=== PATIENT | male | born 1945 | race American Indian/Alaskan Native ===

== ENCOUNTER 2019-07-21 01:45 | Emergency (ER) | payer MEDICARE, BC ==
--- OUTSIDE RECORDS SUMMARY | 2019-07-21 01:59 | XMS REPORT | Summary of Care ---
:1945 Author Organization [facility] Address [address] [address] Care Team Providers Name Role Phone Pablo Rai Primary Care Provider Reason for Visit Reason Comments Hypertension f/u BP Edema continues with edema no change per patient and not taking medications Knee Pain denies any pain, MRI done Encounter Details Date Type Department Care Team Description 06/26/2019 Office Visit [place] [facility] Pablo Rai MD Hypertension, unspecified type (Primary Dx); Medicine [address] Paroxysmal atrial fibrillation (HCC); [address] [place] [address] PMR (polymyalgia rheumatica) (HCC); [place], [place] [id number] Hydroureteronephrosis; [phone] Renal insufficiency, mild; ASHD (arteriosclerotic heart disease) Allergies No Known Allergiesdocumented as of this encounter (statuses as of 07/06/2019) Medications Medication Sig Dispensed Refills Start Date End Date Status ASPIRIN 81 PO Take 1 Tab by 0 Active mouth. Multiple Vitamin Take 2 Tabs by 0 Active (MULTI-DAY) Oral Tab mouth DAILY. Potassium 99 MG Oral Take 2 Tabs by 0 Active Tab mouth DAILY. Magnesium 250 MG Oral Take 1 Tab by 0 Active Tab mouth DAILY. Ascorbic Acid (VITAMIN Take 2 Caps by 0 Active C) 500 MG Oral Cap mouth DAILY. Zn-Pyg Rqcy-Dxbcxk-Oyj Take by mouth. 0 Active Palmet (SAW PALMETTO COMPLEX PO) propafenone (RYTHMOL) Take 225 mg by 0 Active 225 MG Oral Tab mouth EVERY EIGHT HOURS NEEDED. Ca Take by mouth 0 Active Phosphate-Cholecalcifer DAILY. ol (CALCIUM 500 + D3) 250-500 MG-UNIT Oral Chew Tab predniSONE (DELTASONE) Take 20 mg by 0 Active 20 MG Oral Tab mouth DAILY. Tamsulosin HCl (FLOMAX) Take 0.4 mg by 0 Active 0.4 MG Oral Cap mouth DAILY. atorvastatin (LIPITOR) Take 1 Tab by 90 Tab 3 02/27/2019 Active 20 MG Oral mouth DAILY. TabIndications: Other hyperlipidemia, ASHD (arteriosclerotic heart disease) furosemide (LASIX) 20 Take 1 Tab by 30 Tab 5 04/24/2019 Active MG Oral Tab mouth DAILY. SARILUMAB SC Inject beneath 0 Active the skin. lisinopril (PRINIVIL, Take 1 Tab by 90 Tab 3 05/24/2019 Active ZESTRIL) 20 MG Oral Tab mouth DAILY. documented as of this encounter (statuses as of 07/06/2019) Active Problems Problem Noted Date History of atrial fibrillation 04/24/2019 Microscopic hematuria 02/13/2019 Paroxysmal atrial fibrillation 09/12/2018 Other hyperlipidemia 09/12/2018 Mitral regurgitation 09/12/2018 Gout 09/12/2018 ASHD (arteriosclerotic heart disease) 09/12/2018 Follicular neoplasm of thyroid 09/08/2018 PMR (polymyalgia rheumatica) HTN (hypertension) documented as of this encounter (statuses as of 07/06/2019) Immunizations Name Administration Dates Next Due Influenza Vaccine 65 Yrs + 02/24/2019 Pneumococcal Conjugate(13 Valent) 05/23/2019 documented as of this encounter Social History Tobacco Use Types Packs/Day Years Used Date Former Smoker Quit: 1976 Smokeless Tobacco: Never Used Alcohol Use Drinks/Week oz/Week Comments Yes wine daily, 1 glass Sex Assigned at Date Recorded Not on file Job Start Date Occupation Industry Not on file Not on file Not on file Travel History Travel Start Travel End No recent travel history available. documented as of this encounter Last Filed Vital Signs Vital Sign Reading Time Taken Comments Blood Pressure 138/68 06/26/2019 3:07 PM EST Pulse 68 06/26/2019 3:07 PM EST Temperature - - Respiratory Rate - - Oxygen Saturation - - Inhaled Oxygen Concentration - - Weight 68.5 kg (151 lb) 06/26/2019 3:07 PM EST Height - - Body Mass Index 25.13 02/27/2019 4:04 PM EDT documented in this encounter Patient Instructions Patient InstructionsPablo Rai MD - 06/26/2019 2:50 PM ESTContinue same medicines Get checked by urologist. Call if you need me to advocate for a sooner appointment. follow up in 2 months documented in this encounter Progress Notes Pablo Rai MD - 06/26/2019 2:50 PM EST PATIENT: Abdirizak Hutchison : 1945 DATE OF SERVICE: 06/26/2019 CHIEF COMPLAINT: Chief Complaint Patient presents with Hypertension f/u BP Edema continues with edema no change per patient and not taking medications Knee Pain denies any pain, MRI done Subjective HISTORY OF PRESENT ILLNESS: Abdirizak Hutchison is a 73-y.o. male. HPI He returns in follow-up of several issues. Still has some edema in his legs, not consistently taking diuretic. Urged him to take it. Blood pressure satisfactory. Had left leg swelling and had MRI ordered by his cloud consultant. There was no Garg's cyst, and venous Doppler done by me showed no DVT. He has not yet seen urologist as I recommended, to assess bilateral hydronephrosis and hydroureter seen on prior ultrasound. Made referral to Dr. Helder Gallardo in [place] per his request. Past Medical History: Diagnosis Date ASHD (arteriosclerotic heart disease) 09/12/2018 Gout 09/12/2018 HTN (hypertension) Mitral regurgitation 09/12/2018 Other hyperlipidemia 09/12/2018 Paroxysmal atrial fibrillation (HCC) 09/12/2018 PMR (polymyalgia rheumatica) (HCC) Family History Problem Relation Age of Onset Heart Mother Afib Kidney Disease Father Heart Brother 64 CABG Current Outpatient Medications Medication Sig Ascorbic Acid (VITAMIN C) 500 MG Oral Cap Take 2 Caps by mouth DAILY. ASPIRIN 81 PO Take 1 Tab by mouth. atorvastatin (LIPITOR) 20 MG Oral Tab Take 1 Tab by mouth DAILY. Ca Phosphate-Cholecalciferol (CALCIUM 500 + D3) 250-500 MG-UNIT Oral Chew Tab Take by mouth DAILY. furosemide (LASIX) 20 MG Oral Tab Take 1 Tab by mouth DAILY. lisinopril (PRINIVIL, ZESTRIL) 20 MG Oral Tab Take 1 Tab by mouth DAILY. Magnesium 250 MG Oral Tab Take 1 Tab by mouth DAILY. Multiple Vitamin (MULTI-DAY) Oral Tab Take 2 Tabs by mouth DAILY. Potassium 99 MG Oral Tab Take 2 Tabs by mouth DAILY. predniSONE (DELTASONE) 20 MG Oral Tab Take 20 mg by mouth DAILY. propafenone (RYTHMOL) 225 MG Oral Tab Take 225 mg by mouth EVERY EIGHT HOURS NEEDED. SARILUMAB SC Inject beneath the skin. Tamsulosin HCl (FLOMAX) 0.4 MG Oral Cap Take 0.4 mg by mouth DAILY. Zn-Pyg Oqxd-Dzafpu-Cfq Palmet (SAW PALMETTO COMPLEX PO) Take by mouth. No current facility-administered medications for this visit. No Known Allergies Social History Socioeconomic History Marital status: Spouse name: Not on file Number of children: Not on file Years of education: Not on file Highest education level: Not on file Occupational History Not on file Social Needs Financial resource strain: Not on file Food insecurity Worry: Not on file Inability: Not on file Transportation needs Medical: Not on file Non-medical: Not on file Tobacco Use Smoking status: Former Smoker Last attempt to quit: 1977 Years since quittin.0 Smokeless tobacco: Never Used Substance and Sexual Activity Alcohol use: Yes Comment: wine daily, 1 glass Drug use: Not Currently Types: Marijuana Sexual activity: Yes Partners: Female Lifestyle Physical activity Days per week: Not on file Minutes per session: Not on file Stress: Not on file Relationships Social connections Talks on phone: Not on file Gets together: Not on file Attends mormonism service: Not on file Active member of club or organization: Not on file Attends meetings of clubs or organizations: Not on file Relationship status: Not on file Intimate partner violence Fear of current or ex partner: Not on file Emotionally abused: Not on file Physically abused: Not on file Forced sexual activity: Not on file Other Topics Concern Not on file Social History Narrative Not on file REVIEW OF SYSTEMS: Review of Systems Constitutional: Negative for malaise/fatigue and weight loss. HENT: Negative for congestion. Eyes: Negative for blurred vision and double vision. Respiratory: Negative for shortness of breath. Saw Dr Delgado, sat tutor, who did PFT's, were essentially normal. No new meds rx'ed. Cardiovascular: Negative for chest pain. Gastrointestinal: Negative for abdominal pain. Genitourinary: Negative for dysuria. Musculoskeletal: Positive for back pain and joint pain. No symptoms of PMR. In a blinded study of a biologic (serelinab). Down to 9 mg prednisone. Collided with a dog with right knee, hurts a bit Skin: Negative for rash. Neurological: Negative for seizures and loss of consciousness. Endo/Heme/Allergies: Negative for environmental allergies and polydipsia. Psychiatric/Behavioral: Negative for depression. Objective PHYSICAL EXAM: VITALS: BP 138/68 (BP Location: Left arm, Patient Position: Sitting) | Pulse 68 | Wt 151 lb (68.5kg) | BMI 25.13 kg/m Body mass index is 25.13 kg/m . Physical Exam Alert, oriented, in no acute distress. Vitals as above. HEENT: Normocephalic, atraumatic. DEONTE, EOMI. Mouth and ears unremarkable. Neck: No palpable lymphadenopathy in the submandibular, submental, anterior cervical, posterior cervical, or occipital chains, nor in the supraclavicular spaces. No JVD, thyromegaly. LUNGS: clear. HEART: Regular rate and rhythm. ABDOMEN: positive bowel sounds, soft, nontender, no hepatosplenomegaly, masses or bruits. EXTREMITIES: no cyanosis, clubbing, or edema. ASSESSMENT / IMPRESSION: ICD-9-CM ICD-10-CM 1. Hypertension, unspecified typecontrolled 401.9 I10 2. Paroxysmal atrial fibrillation (HCC)none evident today 427.31 I48.0 3. PMR (polymyalgia rheumatica) (HCC)stable on low-dose prednisone 725 M35.3 4. Hydroureteronephrosisagain recommended urology evaluation 591 N13.30 5. Renal insufficiency, mildtold him this could be due to the hydroureteronephrosis and could get worse if this was not addressed 593.9 N28.9 6. ASHD (arteriosclerotic heart disease)controlled 414.00 I25.10 Patient Instructions Continue same medicines Get checked by urologist. Call if you need me to advocate for a sooner appointment. follow up in 2 months author: Pablo Rai MD 06/26/2019 15:53 documented in this encounter Plan of Treatment Date Type Specialty Care Team Description 08/28/2019 Office Visit Internal Medicine Pablo Rai MD [address] [place] [address] [phone] 09/11/2019 Office Visit Cardiology Donn Chaney MD [address] [place] [address] [phone] Health Maintenance Due Date Last Done Comments MEDICARE ANNUAL WELLNESS VISIT 1945 HIV SCREENING 09/07/1959 HEPATITIS C SCREENING 1984 Colonoscopy 1994 ZOSTER IMMUNIZATION SERIES (1 1994 of 2) AAA SCREENING/SURVEILLANCE 2009 DEPRESSION SCREENING 02/14/2020 02/13/2019 FALL RISK ASSESSMENT 02/14/2020 02/13/2019, 02/13/2019 LIPID DISORDER SCREENING 02/28/2020 02/27/2019, 01/02/2019 PNEUMOCOCCAL 65+YRS (2 of 2 - 05/23/2020 05/23/2019 PPSV23) INFLUENZA VACCINE Completed 02/24/2019 HEPATITIS A IMMUNIZATION Aged Out No longer eligible based SERIES on patient's age to complete this topic HPV IMMUNIZATION SERIES Aged Out No longer eligible based on patient's age to complete this topic MENINGOCOCCAL VACCINE IMM Aged Out No longer eligible based on patient's age to complete this topic documented as of this encounter Goals Goal Patient Goal Associated Recent Patient-Stated? Author Type Problems Progress Blood Pressure Blood Pressure 138/68 Manisha Rai, < 140/90 (06/26/2019 MD Pablo 3:07 PM EST) Note: This is an individualized treatment (blood pressure) goal for Abdirizak Hutchison: Displayed above (on the left) is your goal for blood pressure control. Your most recent blood pressure is also shown above, on the right. You should try to achieve blood pressures that are lower than your goal listed above (on the left). Take all prescribed medications as directed Self-management Pablo Hatfield MD Note: This is an individualized self-management goal for Abdirizak Hutchison: Please take all prescribed medications as directed. 1. Do not skip doses. If you cannot afford your medications, talk with your doctor. 2. Use a pill reminder system such as a pill box if needed. Your pharmacist can help you with this. 3. Contact your Pharmacy 5 days before your medication runs out. If you cannot take your medications for any reasons, talk with your doctor. 4. Please bring all of your medication bottles and inhalers (or a list of all your medications/inhalers) with you to every visit. Potential barriers to meeting all of your care plan goals will continue to be addressed on an ongoing basis. documented as of this encounter Results Not on filedocumented in this encounter Visit Diagnoses Diagnosis Paroxysmal atrial fibrillation (HCC) Atrial fibrillation PMR (polymyalgia rheumatica) (HCC) Polymyalgia rheumatica Hydroureteronephrosis Hydronephrosis Hypertension, unspecified type Renal insufficiency, mild Unspecified disorder of kidney and ureter ASHD (arteriosclerotic heart disease) Coronary atherosclerosis of unspecified type of vessel, pilot point or graft documented in this encounter Insurance Payer Benefit Plan / Subscriber ID Effective Dates Phone Address Type Group MEDICARE MEDICARE PART xxxxxxxxxxx 2009-[facility] Medicare A & B t BCBS NATIONAL BC NATIONAL xxxxxxxxxxxx 2018-[facility] Blue nt Cross/Blue Shield ([place]) [place] [address] documented as of this encounter"
--- OUTSIDE RECORDS SUMMARY | 2019-07-21 01:59 | XMS REPORT | Summary of Care ---
:1945 Author Organization [facility] Address [address] [address] Care Team Providers Name Role Phone Pablo Rai Primary Care Provider Reason for Visit Reason Comments Edema left leg seems to be still swollen; denies any pain at this time Hypertension f/u BP: 146/32 Injection would like pnemonia vaccine. Encounter Details Date Type Department Care Team Description 05/23/2019 Office Visit [place] [facility] Pablo Rai MD Renal insufficiency, mild (Primary Dx); Medicine [address] [facility] Hydroureteronephrosis; [address] [place] [address] Hypertension, unspecified type; [place] [address] PMR (polymyalgia rheumatica) (HCC); [phone] Paroxysmal atrial fibrillation ([facility]); Urinary frequency; Left leg swelling Allergies No Known Allergiesdocumented as of this encounter (statuses as of 05/23/2019) Medications Medication Sig Dispensed Refills Start Date [...] 500 MG Oral Cap mouth DAILY. Zn-Pyg Nygs-Dywtci-Auo Take by mouth. 0 Active Palmet (SAW [...] 04/24/2019 Active MG Oral Tab mouth DAILY. lisinopril (PRINIVIL, Take 1 Tab by 30 Tab 0 04/24/2019 Active ZESTRIL) 20 MG Oral Tab mouth DAILY. SARILUMAB SC Inject beneath 0 Active the skin. documented as of this encounter (statuses as of 05/23/2019) Active Problems Problem Noted Date History of atrial fibrillation 04/24/2019 Microscopic hematuria 02/13/2019 Paroxysmal atrial fibrillation 09/12/2018 Other hyperlipidemia 09/12/2018 Mitral regurgitation 09/12/2018 Gout 09/12/2018 ASHD (arteriosclerotic heart disease) 09/12/2018 Follicular neoplasm of thyroid 09/08/2018 PMR (polymyalgia rheumatica) HTN (hypertension) documented as of this encounter (statuses as of 05/23/2019) Immunizations Name Administration Dates Next Due Influenza [...] Sign Reading Time Taken Comments Blood Pressure 146/62 05/23/2019 11:34 AM EST Pulse 68 05/23/2019 11:34 AM EST Temperature - - Respiratory Rate - - Oxygen Saturation - - Inhaled Oxygen Concentration - - Weight 67.6 kg (149 lb) 05/23/2019 11:34 AM EST Height - - Body Mass Index 24.79 02/27/2019 4:04 PM EDT documented in this encounter Patient Instructions Patient InstructionsPablo Rai MD - 05/23/2019 11:20 AM ESTContinue same medicines for now Lab today, as listed. I'll notify you of the results with a letter. Let me know what Dr Avila says about your blood test (if there was a recent creatinine done) follow up in 1 month 12: 37 PM EST documented in this encounter Progress Notes Pablo Rai MD - 05/23/2019 11:20 AM EST PATIENT: Abdirizak Hutchison : 1945 DATE OF SERVICE: 05/23/2019 CHIEF COMPLAINT: Chief Complaint Patient presents with Edema left leg seems to be still swollen; denies any pain at this time Hypertension f/u BP: 146/32 Injection would like pnemonia vaccine. Subjective HISTORY OF PRESENT ILLNESS: Abdirizak Hutchison is a 73-y.o. male. HPI In a study for treatment of PMR with sarilumab, for trying to spare the use of steroids. Got first administration of sarilumab (or placebo) a week and a half ago. Not having myalgia but still feels weak. Still on prednisone 10 mg a day for PMR Wt hard to drop. Has more weight carrying around his left leg, which he measures as 1/2 inch largerthan right at widest part of the calf. Prior venous Doppler of the left leg done last month was negative for DVT. BP in 120's-140's syst. On 20 mg lisinopril . No perceived side effects with this Using diuretic (furosemide) as needed. Note on recent labs done by me that creatinine higher than before (was 1.0 in November 2018, and 1.5 earlier this month). He showed me lab work done in [facility] 1 month ago where creatinine was 1.22. Told him I will be following this closely. He emailed his dye colorist formulator in [place], Dr. Avila to find out if other creatinine levels were done more recently. We reviewed outside records where he had a renal and bladder ultrasound last month showing hydroureter and hydronephrosis. The summary of that report is transcribed below: BILATERAL MILD TO MODERATE HYDROURETERONEPHROSIS WITH DILATATION OF THE RIGHT AND LEFT URETERS TO THE LEVEL OF THE URETEROVESICAL JUNCTIONS. NO INTRAURETERAL STONE OR MASS IDENTIFIED. THIS URETERAL DILATATION IS LIKELY DUE TO THE ENLARGED PROSTATE. A SMALL RIGHT URETERAL JET WAS OBTAINED. A LEFT URETERAL JET COULD NOT BE OBTAINED AT THIS TIME. He was told by the urologist in [place] to report to the emergency room right away for Watson catheterization but he did not do this. He saw another urologist who prescribed tamsulosin, and when the initial dose was ineffective he had him double it, but that did not help so he went back to the initial dose. I told him that hydronephrosis could cause a worsening of kidney function. We will recheck urinalysis and comprehensive metabolic profile today. We talked about using local urologist. He would consider going to one in [place]. We decided we would see what today's test results were and then proceed from there. Past Medical History: Diagnosis Date ASHD (arteriosclerotic [...] mouth EVERY EIGHT HOURS NEEDED. SARILUMAB SC (or possibly placebo- he's in a study) Inject beneath the skin. Tamsulosin HCl (FLOMAX) 0.4 MG Oral Cap Take 0.4 mg by mouth DAILY. Zn-Pyg Kajr-Yqqxpl-Owi Palmet (SAW PALMETTO COMPLEX PO) Take by [...] Last attempt to quit: 1977 Years since quittin.9 Smokeless tobacco: Never Used Substance and Sexual Activity Alcohol use: Yes Comment: wine daily, 1 glass Drug use: Not Currently Types: Marijuana Sexual activity: Yes Partners: Female Lifestyle Physical activity Days per week: Not on file Minutes per session: Not on file Stress: Not on file Relationships Social connections Talks on phone: Not on file Gets together: Not on file Attends pentecostal service: Not on file Active member of [...] REVIEW OF SYSTEMS: Review of Systems Constitutional: Positive for malaise/fatigue. Negative for fever and weight loss. HENT: Negative for congestion. Eyes: Negative for blurred vision. Respiratory: Positive for shortness of breath ( More easily with exertion). Cardiovascular: Negative for chest pain. Gastrointestinal: Negative for abdominal pain. Genitourinary: Positive for frequency. Negative for dysuria, flank pain, hematuria and urgency. Musculoskeletal: Positive for joint pain and myalgias. Neurological: Negative for seizures and loss of consciousness. Endo/Heme/Allergies: Negative for polydipsia. Psychiatric/Behavioral: Negative. Objective PHYSICAL EXAM: VITALS: BP (!) 146/62 (BP Location: Left arm, Patient Position: Sitting) | Pulse 68 | Wt 149 lb (67.6 kg) | BMI 24.79 kg/m Body mass index is 24.79 kg/m. Physical Exam Alert, oriented, in no acute [...] masses or bruits. EXTREMITIES: no cyanosis, clubbing, but trace ankle edema. Left calf slightly bigger than right ASSESSMENT / IMPRESSION: ICD-9-CM ICD-10-CM 1. Renal insufficiency, mildetiology unclear. Possible causes could be the institution of lisinopril, or presence of hydroureteronephrosis. We will recheck lab work 593.9 N28.9 URINALYSIS (LAB) COMPREHENSIVE METABOLIC PANEL 2. Hydroureteronephrosis 591 N13.30 3. Hypertension, unspecified type suboptimally controlled, but if there is hydroureteronephrosis persisting this could raise blood pressure 401.9 I10 4. PMR (polymyalgia rheumatica) (HCC)continue tapering prednisone and participating in study of sarilumab 725 M35.3 5. Paroxysmal atrial fibrillation (HCC)no episodes in the last several weeks 427.31 I48.0 6. Urinary frequencycould be to this hydroureteronephrosis 788.41 R35.0 7. Left leg swellingunclear cause. 729.81 M79.89 Patient Instructions Continue same medicines for now Lab today, as listed. I'll notify you of the results with a letter. Let me know what Dr Avila says about your blood test (if there was a recent creatinine done) follow up in 1 month Author: Pablo Rai MD 05/23/2019 12:01 documented in this encounter Plan of Treatment Date Type Specialty Care Team Description 06/26/2019 Office Visit Internal Medicine Pablo Rai MD [address] [place] [address] [phone] 07/10/2019 Office Visit Internal Medicine Pablo Rai MD [address] [place] [address] [phone] 09/11/2019 Office Visit Cardiology Donn Chaney MD [address] [place] [address] [phone] Name Type Priority Associated Diagnoses Date/Time URINALYSIS (LAB) Lab Routine Renal insufficiency, 05/23/2019 12:45 PM mild EST COMPREHENSIVE METABOLIC Lab Routine Renal insufficiency, 05/23/2019 12:44 PM PANEL mild EST Health Maintenance Due Date Last Done Comments MEDICARE ANNUAL WELLNESS VISIT 1945 HIV SCREENING 09/07/1959 HEPATITIS C SCREENING 1984 Colonoscopy 1994 ZOSTER IMMUNIZATION SERIES (1 1994 of 2) AAA SCREENING/SURVEILLANCE 2009 PNEUMOCOCCAL 65+YRS (1 of 2 - 2009 PCV13) DEPRESSION SCREENING 02/14/2020 02/13/2019 FALL RISK ASSESSMENT 02/14/2020 02/13/2019, 02/13/2019 LIPID DISORDER SCREENING 02/28/2020 02/27/2019, 01/02/2019 INFLUENZA VACCINE Completed 02/24/2019 HEPATITIS A IMMUNIZATION [...] Type Problems Progress Blood Pressure Blood Pressure 146/62 No Fredi, < 140/90 (05/23/2019 MD Pablo 11:34 AM EST) Note: This is an individualized treatment [...] is an individualized self-management goal for Abdirizak Villaltal: Please take all prescribed medications as directed. [...] filedocumented in this encounter Visit Diagnoses Diagnosis Renal insufficiency, mild Unspecified disorder of kidney and ureter Hydroureteronephrosis Hydronephrosis Hypertension, unspecified type PMR (polymyalgia rheumatica) (HCC) Polymyalgia rheumatica Paroxysmal atrial fibrillation (HCC) Atrial fibrillation Urinary frequency Left leg swelling documented in this encounter Insurance Payer Benefit Plan / Subscriber ID Effective Dates Phone Address Type Group MEDICARE MEDICARE PART xxxxxxxxxxx 2009-[employer] Medicare A & B t BC NATIONAL [facility] NATIONAL xxxxxxxxxxxx 2018-[facility] [[email or web address]] Blue Cross/Blue Shield ([place]) [place] [address] documented as of this encounter"
--- NOTE | 2019-07-21 03:02 | ED ---
GI/ HPI - HPI Summary HPI Summary: The patient is a 73 y/o male presenting to [facility] accompanied by with a chief complaint of indwelling catheter issue this morning. He reports that he had BPH surgery, and the catheter was placed 07/19/2019. He was advised that the catheter would drain with hematuria; however, the urine is not draining. He endorses lower abdominal pressure as well. Patient was supposed to be on Cipro for six days but was concerned for issues with atrial fibrillation. PMHx: HTN. Former smoker, daily EtOH, no substance use. Medications reviewed. Allergies noted. - History of Current Complaint Chief Complaint: EDUrogenitalProblems Time Seen by Provider: 07/21/19 02:15 Stated Complaint: CATHER ISSUE PER PT Hx Obtained From: Patient Onset/Duration: Started Hours Ago, Still Present Timing: Constant Severity: Mild Current Severity: Moderate Pain Intensity: 0 Location of Pain: Other - lower Pain Characteristics: Pressure Associated Signs and Symptoms: Positive: Abdominal Pain, Other: - urinary retention via catheter - Allergy/Home Medications Allergies/Adverse Reactions: Allergies Allergy/AdvReac Type Severity Reaction Status Date / Time No Known Allergies Allergy Verified 07/21/19 01:51 PMH/Surg Hx/FS Hx/Imm Hx Endocrine/Hematology History: Denies: Hx Diabetes, Hx Thyroid Disease, Hx Anemia Cardiovascular History: Reports: Hx Atrial Fibrillation, Hx Hypertension Denies: Hx Pacemaker/ICD GI History: Denies: Hx Jaundice History: Denies: Hx Dialysis, Hx Renal Disease Sensory History: Denies: Hx Hearing Aid Psychiatric History: Denies: Hx Panic Disorder - Surgical History Surgical History: Yes Surgery Procedure, Year, and Place: tonsillectomy Infectious Disease History: No Infectious Disease History: Denies: Traveled Outside the [place] in Last 30 Days - Family History Known Family History: Negative: Diabetes, Renal Disease - Social History Alcohol Use: Daily Hx Substance Use: No Substance Use Type: Reports: None Hx Tobacco Use: Yes Smoking Status (MU): Former Smoker Review of Systems Positive: Abdominal Pain - lower, pressure Positive: other - urinary retention with catheter All Other Systems Reviewed And Are Negative: Yes Physical Exam - Summary Physical Exam Summary: Appearance: Well-appearing, Well-nourished, lying in bed comfortable Skin: Warm, dry, no obvious rash Eyes: sclera anicteric, no conjunctival pallor HENT: mucous membranes moist Neck: deferred Respiratory: No signs of respiratory distress Cardiovascular: Appears well perfused, pulses are nml Abdomen: deferred Musculoskeletal: Moving all 4 extremities without obvious discomfort Neurological: Awake and alert, mentation is normal, speech is fluent and appropriate Psychiatric: affect is normal, does not appear anxious or depressed Triage Information Reviewed: Yes Vital Signs On Initial Exam: Initial Vitals Temp Pulse Resp BP Pulse Ox 99.1 F 78 20 137/78 99 07/21/19 01:47 07/21/19 01:47 07/21/19 01:47 07/21/19 01:47 07/21/19 01:47 Vital Signs Reviewed: Yes Procedures - Sedation Patient Received Moderate/Deep Sedation with Procedure: No Diagnostics - Vital Signs Vital Signs Temp Pulse Resp BP Pulse Ox 07/21/19 01:47 99.1 F 78 20 137/78 99 - Laboratory Lab Statement: Any lab studies that have been ordered have been reviewed, and results considered in the medical decision making process. Re-Evaluation - Re-Evaluation First Eval Re-Evaluation Time: 03:10 Change: Improved Comment: Aguilera working properly. We discussed plan for discharge. GIGU Course/Dx - Course Course Of Treatment: 73 y/o male presenting with aguilera catheter drainage issues , with placemen of catheter two days ago following BPH surgery. States lower abdominal pressure. Physical exam unremarkable. Nurse Lini irrigated catheter to improve urinary flow and abdominal pressure. Patient is safe for discharge. Patient understands and agrees with plan with rx for Keflex. - Diagnoses Provider Diagnoses: Aguilera catheter problem Discharge ED - Sign-Out/Discharge Documenting (check all that apply): Patient Departure - Patient will be discharged home. - Discharge Plan Condition: Good Disposition: HOME Patient Education Materials: Aguilera Catheter Placement and Care (ED) Referrals: Jc Deshpande MD [Primary Care Provider] - - Billing Disposition and Condition Condition: GOOD Disposition: Home - Attestation Statements Document Initiated by Stephanie: Yes Documenting Scribe: Ashlee Caban Provider For Whom Stephanie is Documenting (Include Credential): Dr. Skyler Beebe MD Scribe Attestation: Ashlee Mays scribed for Dr. Skyler Beebe MD on 07/21/19 at 0457. Scribe Documentation Reviewed: Yes Provider Attestation: The documentation as recorded by the Ashlee moyer accurately reflects the service I personally performed and the decisions made by me, Dr. Skyler Beebe MD Status of Vandanaibranjit Document: Viewed
[2019-07-21] MEDS ORDERED: Cephalexin CAP* 500 MG PO ONE (03:14)
[2019-07-21 03:56] VITALS: BP 147/72
== END 2019-07-21 03:35 | disposition home or self-care (01) ==
LOC: ED 01:45
DX: T83.098A Other mechanical complication of other urinary catheter, initial encounter (principal); I48.91 Unspecified atrial fibrillation; I10 Essential (primary) hypertension; Z87.891 Personal history of nicotine dependence
CPT/HCPCS: 99282; A9270-GY

== ENCOUNTER 2019-07-22 20:16 | Emergency (ER) | payer MEDICARE, BC ==
[2019-07-22 20:21] VITALS: BP 158/86
--- NOTE | 2019-07-22 20:47 | ED ---
GI/ HPI - HPI Summary HPI Summary: 73 year old male presents with catheter not working. He states he had a cystoscope on 07/19 and had catheter placed afterwards. He states the catheter wasn't draining and needed to be irrigated twice so far. States that he came in two nights ago and was on Cipro which was switched to Keflex which he has been taking for the past 24 hours. He's been taking 500mg 4 times a day. He states he has a issues with his prostate. Denies any history of kidney stones. He states he takes a daily aspirin. He states that noticed more blood in his urine earlier today and then started passing some clots and then he started passing urine. He denies any pain. - History of Current Complaint Chief Complaint: EDUrogenitalProblems Time Seen by Provider: 07/22/19 20:31 Stated Complaint: PROBLEMS WITH CATHETER PER PT Pain Intensity: 3 - Allergy/Home Medications Allergies/Adverse Reactions: Allergies Allergy/AdvReac Type Severity Reaction Status Date / Time No Known Allergies Allergy Verified 07/23/19 04:05 PMH/Surg Hx/FS Hx/Imm Hx Endocrine/Hematology History: Denies: Hx Diabetes, Hx Thyroid Disease, Hx Anemia Cardiovascular History: Reports: Hx Atrial Fibrillation, Hx Hypertension Denies: Hx Pacemaker/ICD GI History: Denies: Hx Jaundice History: Denies: Hx Dialysis, Hx Renal Disease Sensory History: Denies: Hx Hearing Aid Psychiatric History: Denies: Hx Panic Disorder - Surgical History Surgery Procedure, Year, and Place: tonsillectomy - Immunization History Date of Influenza Vaccine: 02/2019 Infectious Disease History: No Infectious Disease History: Denies: Traveled Outside the [place] in Last 30 Days - Family History Known Family History: Negative: Diabetes, Renal Disease - Social History Alcohol Use: Daily Hx Substance Use: No Substance Use Type: Reports: None Hx Tobacco Use: Yes Smoking Status (MU): Former Smoker Review of Systems Negative: Fever Negative: Chest Pain Negative: Shortness Of Breath Positive: other - catheter not draining All Other Systems Reviewed And Are Negative: Yes Physical Exam Triage Information Reviewed: Yes Vital Signs On Initial Exam: Initial Vitals Temp Pulse Resp BP Pulse Ox 98.7 F 90 16 158/86 100 07/22/19 20:18 07/22/19 20:18 07/22/19 20:18 07/22/19 20:18 07/22/19 20:18 Vital Signs Reviewed: Yes Appearance: Positive: Well-Appearing Skin: Positive: Warm, Dry Head/Face: Positive: Normal Head/Face Inspection Eyes: Positive: Normal, Conjunctiva Clear ENT: Positive: Pharynx normal Respiratory/Lung Sounds: Positive: Clear to Auscultation, Breath Sounds Present Cardiovascular: Positive: Normal, RRR Abdomen Description: Positive: Soft, Other: - mild suprapubic tenderness Bowel Sounds: Positive: Present Musculoskeletal: Positive: Normal Neurological: Positive: Normal Psychiatric: Positive: Normal Procedures - Sedation Patient Received Moderate/Deep Sedation with Procedure: No Diagnostics - Vital Signs Vital Signs Temp Pulse Resp BP Pulse Ox 07/22/19 20:18 98.7 F 90 16 158/86 100 - Laboratory Lab Statement: Any lab studies that have been ordered have been reviewed, and results considered in the medical decision making process. Re-Evaluation - Re-Evaluation First Eval Re-Evaluation Time: 21:03 Comment: urine is less blood tinged and no clots coming out of catether after flushed GIGU Course/Dx - Course Course Of Treatment: 73 year old male presents with catheter not working. He states he had a cystoscope on 07/19 and had catheter placed afterwards. He states the catheter wasn't draining and needed to be irrigated twice so far. States that he came in two nights ago and was on Cipro which was switched to Keflex which he has been taking for the past 24 hours. He's been taking 500mg 4 times a day. He states he has a issues with his prostate. Denies any history of kidney stones. He states he takes a daily aspirin. He states that noticed more blood in his urine earlier today and then started passing some clots and then he started passing urine. He denies any pain. On exam mild suprapubic tenderness. Bladder scan shows urine 650. catheter was flushed by Dariela and started to flow again. urine started bloody and then started to clear up. told to follow up with urology. patient understand and agrees with plan. - Diagnoses Differential Diagnoses - Male: Urinary Tract Infection, Other - catheter problem , bladder stone Provider Diagnoses: Urinary catheter complication Discharge ED - Sign-Out/Discharge Documenting (check all that apply): Patient Departure - Discharge Plan Condition: Good Disposition: HOME Patient Education Materials: [facility] Catheter Placement and Care (ED) Referrals: Jc Deshpande MD [Medical Doctor] - Additional Instructions: drink plenty of fluids follow up with urology Return to ED if develop any new or worsening symptoms - Billing Disposition and Condition Condition: GOOD Disposition: Home - Attestation Statements Provider Attestation: I was available for consultation for this patient. I did not evaluate the patient or participate in any medical decision making or disposition decisions unless I am specifically named in the chart as having consulted on the patient. If I have consulted on the patient, please see my own ED note on the patient encounter. Mariel Spear MD
== END 2019-07-22 21:15 | disposition home or self-care (01) ==
LOC: ED 20:16
DX: T83.098A Other mechanical complication of other urinary catheter, initial encounter (principal); I48.91 Unspecified atrial fibrillation; I10 Essential (primary) hypertension; Z87.891 Personal history of nicotine dependence
CPT/HCPCS: 99282

== ENCOUNTER 2019-07-23 04:01 | Emergency (ER) | payer MEDICARE, BC ==
[2019-07-23 05:20] LABS: Urine Appearance Cloudy; Urine Bilirubin Negative (Negative); Urine Blood 3+ (Negative); Urine Color Yellow; Urine Glucose Negative (Negative); Urine Ketones Negative (Negative); Urine Nitrite Negative (Negative); Urine Protein Negative (Negative); Urine Urobilinogen Negative (Negative)
--- NOTE | 2019-07-23 05:24 | ED ---
GI/ HPI - HPI Summary HPI Summary: 73 year old male presents to the ED with a chief complaint of aguilera catheter blockage. Patient had prostate surgery 3 days ago. In [facility]. He had a Aguilera catheter placed after the procedure. Was placed on Cipro prophylactically. He states he had hematuria and then catheter blockage that night was seen in [place]. Was doing well yesterday but presented overnight with catheter blockage. It was irrigated and drained. Patient had read about Cipro in combination with his prednisone for PMR and requested Cipro to be stopped. Was started on Keflex. Has had 6 doses total. Patient was taking a shower yesterday morning when he noticed blood in his Aguilera catheter. Later in the day, he noticed that the catheter failed to drain. He reports pain in his suprapubic area, as well as burning dysuria. He denies fever. Patient also admits being unsure if he has drank enough fluids. - History of Current Complaint Chief Complaint: EDUrogenitalProblems Time Seen by Provider: 07/23/19 04:34 Stated Complaint: CATHETER NOT DRAINING PER PT Hx Obtained From: Patient Onset/Duration: Started Hours Ago, Still Present Timing: Constant Pain Intensity: 0 Location of Pain: Suprapubic Additional Locations for Males: Penis Pain Characteristics: Burning Associated Signs and Symptoms: Positive: Hematuria, Dysuria, Abdominal Pain - Allergy/Home Medications Allergies/Adverse Reactions: Allergies Allergy/AdvReac Type Severity Reaction Status Date / Time No Known Allergies Allergy Verified 07/23/19 04:05 PMH/Surg Hx/FS Hx/Imm Hx Endocrine/Hematology History: Denies: Hx Diabetes, Hx Thyroid Disease, Hx Anemia Cardiovascular History: Reports: Hx Atrial Fibrillation, Hx Hypertension Denies: Hx Pacemaker/ICD GI History: Denies: Hx Jaundice History: Denies: Hx Dialysis, Hx Renal Disease Sensory History: Denies: Hx Hearing Aid Psychiatric History: Denies: Hx Panic Disorder - Surgical History Surgery Procedure, Year, and Place: tonsillectomy - Immunization History Date of Influenza Vaccine: 02/2019 Infectious Disease History: No Infectious Disease History: Denies: Traveled Outside the [place] in Last 30 Days - Family History Known Family History: Negative: Diabetes, Renal Disease - Social History Alcohol Use: Daily Hx Substance Use: No Substance Use Type: Reports: None Hx Tobacco Use: Yes Smoking Status (MU): Former Smoker Review of Systems - StartBull Summary Review of Systems Summary: Home Medications Medication Instructions Recorded Confirmed Type Aspirin [Aspir-Low] 81 mg PO DAILY 08/30/18 08/30/18 History Magnesium [Magnesium Elemental] 30 mg PO DAILY 08/30/18 08/30/18 History Multivitamin [Multivitamins] 1 cap PO DAILY 08/30/18 08/30/18 History Potassium 99 mg PO DAILY 08/30/18 08/30/18 History Negative: Fever Positive: Abdominal Pain Positive: burning, dysuria, hematuria, pain All Other Systems Reviewed And Are Negative: Yes Physical Exam - Summary Physical Exam Summary: General: Well-developed, Well-nourished male. No acute distress. HEENT: Normocephalic, Atraumatic. Eyes: Conjuctiva normal, PERRL. Ears: TMs within normal limits. Nares: (-) discharge, (-) erythema. Oropharynx: Clear, mucous membranes moist, (-) exudates. Neck: Soft, FROM, (-) lymphadenopathy, (-) thyromegaly, (-) JVD. Cardiovascular: Normal sinus rhythm, (-) murmur. Lungs: Clear to auscultation bilaterally (-) wheezes, (-) rales, (-) rhonchi. Abdomen: Soft, slightly distended abdomen. No significant tenderness. (-) organomegaly, normal bowel sounds. Mild suprapubic tenderness and fullness. Back: (-) CVA tenderness Extremities: No edema. Skin: Warm, dry, (-) rash. Neuro: Alert and oriented x3, no focal deficits. Psychiatric: Mood normal, affect normal. Triage Information Reviewed: Yes Vital Signs On Initial Exam: Initial Vitals Temp Pulse Resp BP Pulse Ox 99.2 F 74 18 146/67 98 07/23/19 04:01 07/23/19 04:01 07/23/19 04:01 07/23/19 04:01 07/23/19 04:01 Vital Signs Reviewed: Yes Procedures - Sedation Patient Received Moderate/Deep Sedation with Procedure: No Diagnostics - Vital Signs Vital Signs Temp Pulse Resp BP Pulse Ox 07/23/19 04:01 99.2 F 74 18 146/67 98 - Laboratory Lab Statement: Any lab studies that have been ordered have been reviewed, and results considered in the medical decision making process. GIGU Course/Dx - Course Course Of Treatment: 73-year-old male with Aguilera catheter malfunction. Since having the Aguilera catheter placed 3-4 days ago after prostate surgery he has had 3 hospital visits for malfunction. He had significant hematuria initially. Catheter was irrigated. Once in [facility] and then once here. His prophylactic Cipro was changed to Keflex at his request. Patient had hematuria again yesterday and then had decreased drainage of his Aguilera catheter overnight. Upon arrival here he had 600 cc of fluid in his bladder. Irrigation of the Aguilera produced significant urine output. Good urinary output of late yellow urine. Decrease in discomfort of the suprapubic area. UA demonstrates no obvious infection. Advised patient to increase his fluid intake. Follow-up with urology. Follow-up sooner for any worsening symptoms. - Diagnoses Provider Diagnoses: Malfunction of Aguilera catheter Discharge ED - Sign-Out/Discharge Documenting (check all that apply): Patient Departure - discharge home - Discharge Plan Condition: Stable Disposition: HOME Patient Education Materials: Aguilera Catheter Placement and Care (ED) Referrals: Pablo Rai MD [Primary Care Provider] - Additional Instructions: Follow up with your primary care provider in 2-3 days. Return to the ED if you experience new or worsened symptoms. - Billing Disposition and Condition Condition: STABLE Disposition: Home - Attestation Statements Document Initiated by Stephanie: Yes Documenting Scribe: Patrick Concepcion Provider For Whom Stephanie is Documenting (Include Credential): Fany English MD Scribe Attestation: Patrick Mays, scribed for Fany English MD on 07/23/19 at 0629. Scribe Documentation Reviewed: Yes Provider Attestation: The documentation as recorded by the Patrick moyer accurately reflects the service I personally performed and the decisions made by me, Fany English MD Status of Scribe Document: Viewed
[2019-07-23 05:35] LABS: Urine Bacteria Absent (Absent); Urine Red Blood Cell 3+(>10/hpf) (Absent); Urine White Blood Cell Trace(0-5/hpf) (Absent)
[2019-07-23 06:28] VITALS: BP 134/64
== END 2019-07-23 06:25 | disposition home or self-care (01) ==
LOC: ED 04:01
DX: T83.098A Other mechanical complication of other urinary catheter, initial encounter (principal); I48.91 Unspecified atrial fibrillation; I10 Essential (primary) hypertension; Z87.891 Personal history of nicotine dependence; Z79.82 Long term (current) use of aspirin; Z79.899 Other long term (current) drug therapy
CPT/HCPCS: 81003; 81015; 87086; 99282

== ENCOUNTER 2020-02-22 11:32 | Inpatient (IN) ==
[2020-02-22] MEDS ORDERED: Etomidate 20 mg/10 ml 2 MG/ML 10 ml VIAL ONE (11:37)
[2020-02-22] MEDS ORDERED: Heparin 5000 UNITS/ML 1 mL VIAL ONE (11:38)
[2020-02-22] MEDS ORDERED: Heparin - STEMI 5,000 UNITS/ML 1 ml VIAL IV ONE (11:51)
[2020-02-22] MEDS ORDERED: Etomidate 20 mg/10 ml 2 MG/ML 10 ml VIAL IV ONE (11:51)
[2020-02-22] MEDS ORDERED: Lidocaine 1% VIAL 10 MG/ML VIAL ONE (11:54)
[2020-02-22] MEDS ORDERED: Iohexol 350 (CONTRAST) 200 ML MDV IV ONE (11:54)
[2020-02-22] MEDS ORDERED: Heparin 2 UNITS/ML 1000 mls 0 ML IV ONE (11:54)
[2020-02-22 12:00] LABS: Hematocrit 41 % (42-52); Hemoglobin 14.5 g/dL (14.0-18.0); Mean Corpuscular HGB Conc 35 g/dL (31-36); Mean Corpuscular Hemoglobin 31 pg (27-31); Mean Corpuscular Volume 89 fL (80-94); Mean Platelet Volume 9.5 fL (7.4-10.4); Platelet Count 202 10^3/uL (150-450); Red Blood Count 4.68 10^6 /uL (4.18-5.48); Red Cell Distribution Width 15 % (10-15); White Blood Count 19.2 10^3/uL (3.5-10.8)
[2020-02-22] MEDS ORDERED: Lactated Ringers 1000 ml BAG 1,000 ML IV ONE (12:00)
[2020-02-22] MEDS ORDERED: VERAPAMIL 2.5 MG/ML 2 ML VIAL ** 5 mg/2 ml ONE (12:04)
[2020-02-22] MEDS ORDERED: Heparin 1,000 UNIT/ML 10 ml (10,000 UNITS) CATHLAB/DIALYSIS ONE (12:04)
[2020-02-22] MEDS ORDERED: nitroGLYCERIN DRIP 0 MCG/0 ML BTL ONE (12:05)
[2020-02-22] MEDS ORDERED: HYDROmorphone 1 MG/1 ML SYRINGE ONE (12:05)
[2020-02-22] MEDS ORDERED: diPHENhydraMINE IV 50 MG/ML 1 ml VIAL (BENADRYL) ONE (12:06)
[2020-02-22 12:12] LABS: Activated Partial Thrombo Time 30.1 seconds (26.0-38.0); INR 1.14 (0.82-1.09)
[2020-02-22 12:31] LABS: Albumin 4.1 g/dL (3.2-5.2); Albumin/Globulin Ratio 1.5 (1-3); BUN/Creatinine Ratio 29.1 (8-20); Calcium 9.4 mg/dL (8.6-10.3); EGFR African American 73.5 (>60); EGFR Non-African American 60.8 (>60); Globulin 2.8 g/dL (2-4); Potassium 4.9 mmol/L (3.5-5.0); Total Bilirubin 0.7 mg/dL (0.2-1.0); Total Protein 6.9 g/dL (6.4-8.9)
[2020-02-22 12:35] LABS: CKMB ng/mL 8.1 ng/mL (0.6-6.3); Troponin I 0.18 ng/mL (<0.03)
[2020-02-22 13:04] LABS: ABS Basophils 0.2 10^3/ul (0-0.2); ABS Lymphocytes 1.1 10^3/ul (1.0-4.8); ABS Monocytes 0.8 10^3/ul (0-0.8); ABS Neutrophils 17.1 10^3/ul (1.5-7.7); Eosinophil % 0.3 %; Lymphocyte % 5.7 %
[2020-02-22] MEDS ORDERED: Heparin DRIP 25,000 UNITS BAG 25,000 UNITS/500 ML BAG IV SCH (14:30)
[2020-02-22 15:10] LABS: Magnesium 1.9 mg/dL (1.9-2.7)
[2020-02-22 15:22] LABS: Troponin I 0.94 ng/mL (<0.03)
[2020-02-22] MEDS ORDERED: Magnesium Sulfate IV 1GM/100ML 1 GM/100 ML BAG IV ONE (15:25)
[2020-02-22] MEDS: Heparin DRIP 25,000 UNITS BAG 25,000 UNITS/500 ML BAG IV SCH (16:54)
[2020-02-22 18:29] LABS: Troponin I 7.58 ng/mL (<0.03)
[2020-02-22 22:35] LABS: Urine Appearance Cloudy; Urine Bilirubin Negative (Negative); Urine Blood 3+ (Negative); Urine Color Straw; Urine Glucose Negative (Negative); Urine Ketones Negative (Negative); Urine Nitrite Negative (Negative); Urine Protein Negative (Negative); Urine Specific Gravity 1.003 (1.010-1.030); Urine Urobilinogen Negative (Negative)
[2020-02-22 22:42] LABS: Urine Bacteria Absent (Absent); Urine Red Blood Cell 2+(6-10/hpf) (Absent); Urine White Blood Cell 3+(>20/hpf) (Absent)
[2020-02-22 22:54] LABS: Troponin I 8.15 ng/mL (<0.03)
[2020-02-23] MEDS ORDERED: Nitro 2% OINT (Nitroglycerin) 1 INCH/PAK TOPICAL ONE (00:53)
[2020-02-23] MEDS: Heparin 5000 UNITS/ML 1 mL VIAL IV PRN (01:16)
[2020-02-23 01:40] LABS: Troponin I 7.97 ng/mL (<0.03)
[2020-02-23 04:53] LABS: Troponin I 11.16 ng/mL (<0.03)
[2020-02-23] MEDS ORDERED: NS 0.9% 1000 ml BAG 1,000 ML IV SCH (05:00)
[2020-02-23 06:27] LABS: ABS Basophils 0.1 10^3/ul (0-0.2); ABS Eosinophils 0.3 10^3/ul (0-0.6); ABS Lymphocytes 1.7 10^3/ul (1.0-4.8); ABS Monocytes 0.9 10^3/ul (0-0.8); ABS Neutrophils 11.7 10^3/ul (1.5-7.7); Hematocrit 40 % (42-52); Hemoglobin 13.5 g/dL (14.0-18.0); Lymphocyte % 11.3 %; Mean Corpuscular HGB Conc 34 g/dL (31-36); Mean Corpuscular Hemoglobin 30 pg (27-31); Mean Corpuscular Volume 89 fL (80-94); Mean Platelet Volume 8.9 fL (7.4-10.4); Platelet Count 180 10^3/uL (150-450); Red Blood Count 4.47 10^6 /uL (4.18-5.48); Red Cell Distribution Width 15 % (10-15); White Blood Count 14.7 10^3/uL (3.5-10.8)
[2020-02-23 06:47] LABS: Anion Gap 7 mmol/L (2-11); BUN/Creatinine Ratio 21.6 (8-20); Blood Urea Nitrogen 22 mg/dL (6-24); CO2 Carbon Dioxide 28 mmol/L (22-32); Chloride 102 mmol/L (101-111); EGFR African American 86.2 (>60); EGFR Non-African American 71.2 (>60); Glucose 112 mg/dL (70-100); Potassium 3.8 mmol/L (3.5-5.0); Sodium 137 mmol/L (135-145)
[2020-02-23 06:51] LABS: Troponin I 10.85 ng/mL (<0.03)
[2020-02-23] MEDS ORDERED: Lidocaine 1% VIAL 10 MG/ML VIAL ONE (07:54)
[2020-02-23] MEDS ORDERED: Heparin 2 UNITS/ML 1000 mls 1,000 ML IV ONE (07:54)
[2020-02-23] MEDS ORDERED: Iohexol 350 (CONTRAST) 200 ML MDV IV ONE (07:54)
[2020-02-23] MEDS ORDERED: Midazolam 5 mg/5 ml VIAL 1 mg/ml 5 ml VIAL (5 mg) ONE (08:14)
[2020-02-23] MEDS ORDERED: diPHENhydraMINE IV 50 MG/ML 1 ml VIAL (BENADRYL) ONE (08:15)
[2020-02-23] MEDS ORDERED: Heparin 1,000 UNIT/ML 10 ml (10,000 UNITS) CATHLAB/DIALYSIS ONE (08:15)
[2020-02-23] MEDS ORDERED: VERAPAMIL 2.5 MG/ML 2 ML VIAL ** 5 mg/2 ml ONE (08:15)
[2020-02-23] MEDS ORDERED: HYDROmorphone 1 MG/1 ML SYRINGE ONE (08:15)
[2020-02-23] MEDS ORDERED: Flumazenil 0.5 mg/5 ml 0.1 MG/ML 5 ml VIAL ONE (08:29)
[2020-02-23] MEDS ORDERED: Aspirin EC 81 mg TAB.EC (enteric coated) PO SCH (09:00)
[2020-02-23] MEDS: Nitro Patch/OINT Remove PATCH PATCH OFF SCH (11:22)
[2020-02-23] MEDS: Heparin DRIP 25,000 UNITS BAG 25,000 UNITS/500 ML BAG IV SCH (12:45)
[2020-02-23] MEDS: Aspirin EC 81 mg TAB.EC (enteric coated) PO SCH (17:39)
[2020-02-23] MEDS ORDERED: Dextran 70/Hypromellose Tears Eye Drops 15 ml BTL (for Artificials Tears) BOTH EYES PRN (23:47)
[2020-02-24] MEDS: Heparin 5000 UNITS/ML 1 mL VIAL IV PRN ×2 (04:47→14:50)
[2020-02-24 06:35] LABS: ABS Basophils 0.1 10^3/ul (0-0.2); ABS Eosinophils 0.4 10^3/ul (0-0.6); ABS Lymphocytes 1.8 10^3/ul (1.0-4.8); ABS Monocytes 0.8 10^3/ul (0-0.8); ABS Neutrophils 9.8 10^3/ul (1.5-7.7); Eosinophil % 2.9 %; Hematocrit 38 % (42-52); Hemoglobin 12.9 g/dL (14.0-18.0); Mean Corpuscular HGB Conc 34 g/dL (31-36); Mean Corpuscular Hemoglobin 31 pg (27-31); Mean Corpuscular Volume 90 fL (80-94); Mean Platelet Volume 8.7 fL (7.4-10.4); Platelet Count 167 10^3/uL (150-450); Red Blood Count 4.21 10^6 /uL (4.18-5.48); Red Cell Distribution Width 15 % (10-15); White Blood Count 12.9 10^3/uL (3.5-10.8)
[2020-02-24 06:56] LABS: Albumin 3.3 g/dL (3.2-5.2); Albumin/Globulin Ratio 1.2 (1-3); BUN/Creatinine Ratio 17.1 (8-20); Calcium 8.6 mg/dL (8.6-10.3); EGFR African American 78.1 (>60); EGFR Non-African American 64.6 (>60); Globulin 2.8 g/dL (2-4); HDL Cholesterol 62.5 mg/dL; Potassium 3.7 mmol/L (3.5-5.0); Total Bilirubin 0.8 mg/dL (0.2-1.0); Total Protein 6.1 g/dL (6.4-8.9)
[2020-02-24] MEDS: Nitro Patch/OINT Remove PATCH PATCH OFF SCH (09:06)
[2020-02-24] MEDS ORDERED: Cefepime 2 GM in Dextrose 2 GM/50 ML BAG IV SCH (12:30)
[2020-02-24] MEDS: Aspirin EC 81 mg TAB.EC (enteric coated) PO SCH (17:14)
[2020-02-24] MEDS: Heparin DRIP 25,000 UNITS BAG 25,000 UNITS/500 ML BAG IV SCH (22:36)
[2020-02-25] MEDS: Nitro Patch/OINT Remove PATCH PATCH OFF SCH (07:24)
[2020-02-25 09:42] VITALS: BP 100/52
== END 2020-02-25 11:29 | disposition short-term general hospital (02) | DRG 281 ==
LOC: ED 11:32 → MEDTELE 13:48
PROVIDERS: ADMIT Student in an Organized Health Care Education/Training Program; ATTEND Internal Medicine